=== PATIENT | female | born 1975 | race Two or more races ===

== ENCOUNTER 2023-08-06 13:35 | Emergency (ER) | payer OTHER ==
[2023-08-06 14:00] VITALS: BMI 22.6
[2023-08-06] MEDS ORDERED: ACETAMINOPHEN 500 MG TABLET (FP) ONE (16:01)
[2023-08-06] MEDS ORDERED: LIDOCAINE 4% PATCH TP ONE (16:01)
[2023-08-06] MEDS: LIDOCAINE 5% TOPICAL PATCH TP ONE (16:07)
[2023-08-06] MEDS: ACETAMINOPHEN 500 MG TABLET (FP) PO ONE (16:07)
[2023-08-06 16:35] LABS: EPI CELLS 18 /uL (0-25.1); HYALINE CASTS 6 /uL (0-3.1); PH,URINE 5.5 (5.0-8.0); URINE APPEARANCE CLEAR; URINE BACTERIA 14 /uL (0-1359); URINE BILIRUBIN NEGATIVE (NEGATIVE); URINE COLOR YELLOW; URINE GLUCOSE (UA) NEGATIVE (NEGATIVE); URINE KETONE NEGATIVE (NEGATIVE); URINE LEUK ESTERASE TRACE (NEGATIVE); URINE NITRITE NEGATIVE (NEGATIVE); URINE PROTEIN NEGATIVE (NEGATIVE); URINE RBC 32 /uL (0-23.9); URINE UROBILINOGEN 0.2 mg/dL (0.2-1.0); URINE WBC 18 /uL (0-25.8)
[2023-08-06 17:46] VITALS: BP 117/86; PULSE 68; RESP 18; TEMP 98.6
[2023-08-06] MEDS ORDERED: IBUPROFEN 600 MG TABLET (FP) PO ONE (18:42)
[2023-08-06] MEDS: IBUPROFEN 600 MG TABLET (FP) PO ONE (18:46)
[2023-08-06] MEDS ORDERED: LIDOCAINE PATCH REMOVAL MC SCH (22:00)
== END 2023-08-06 18:56 | disposition home or self-care (01) ==
LOC: JER 13:35
DX: R51.9 Headache, unspecified (principal); M54.50 Low back pain, unspecified; M25.562 Pain in left knee; M54.2 Cervicalgia; Y04.8XXA Assault by other bodily force, initial encounter
CPT/HCPCS: 70450-TC; 70490-TC; 72125-TC; 73562-TC-LT-FY; 81003; 99285-25